=== PATIENT | female | born 1990 | race Caucasian/White ===

== ENCOUNTER 2024-10-12 15:54 | Outpatient (CLI) | payer OTHER, SELFPAY ==
--- OUTSIDE RECORDS SUMMARY | 2024-10-12 16:00 | XMS_ITS | Clinical Summary ---
Author Organization [facility] Address [address] [place] [address] Care Team Providers Care Learning Solutions Specialist Name Role Phone Lani Mahmood MD Primary Care Provider [phone] JohnUli Fernando DO Unavailable Allergies Active Allergy Reactions Criticality Noted Date Comments Sulfa Antibiotics GI Upset 07/01/2024 Medications amphetamine-dext roamphetamine (ADDERALL) 30 MG tablet Take 1 tablet (30 mg total) by mouth 2 (two) times daily. 4 Active vitamin, low iron, 27-0.8 mg tablet Take 1 tablet by mouth daily. Active aspirin 81 MG chewable tablet Chew 1 tablet (81 mg total) by mouth daily. Active MAGNESIUM GLUCONATE OR Active VITAMIN D, CHOLECALCIFEROL, OR Active buPROPion SR 200 MG TABLET SR 12 HR 12 hr tabletIndication s:Mild episode of recurrent major depressive disorder Take 1 tablet by mouth daily. 90 tablet 5 Active ferrous sulfate, 65 mg elemental, 325 (65 FE) MG tabletIndication s:Iron deficiency anemia, unspecified iron deficiency anemia type Take 1 tablet (325 mg total) by mouth daily with breakfast. 90 tablet 5 Active buPROPion SR 200 MG TABLET SR 12 HR 12 hr tabletIndication s:Mild episode of recurrent major depressive disorder Take 1 tablet by mouth daily. 90 tablet 2 5 10/04/19 25 Discontinu ed(Reorder ) ferrous sulfate, 65 mg elemental, 325 (65 FE) MG tabletIndication s:Iron deficiency anemia, unspecified iron deficiency anemia type Take 1 tablet (325 mg total) by mouth daily with breakfast. 90 tablet 1 5 10/04/19 25 Discontinu ed(Reorder ) Active Problems Problem Noted Date Diagnosed Date Attention or concentration deficit 07/01/2024 Mild episode of recurrent major depressive disor ana paula 07/01/2024 Estimated Date of Delivery Comme nts Yes 11/06/2024 Immunizations Immunization Administration Dates Next Due Tdap (Generic) 11/23/2018,03/23/2014 Family History Medical History Relation Comments Asthma Father Cancer Father Heart Disease Maternal Grandfather Asthma Mother Early Hearing Loss Mother Heart Disease Paternal Grandfather Relation Status Comments Father Maternal Grandfather Mother Paternal Grandfather Social History Tobacco Use Types Packs/Day Years Used Date Smoking Tobacco: Never Smokeless Tobacco: Never Tobacco Cessation:Counseling Given: Yes AUDIT-C Answer Date Recorded Q1: How often do you have a drink containing alcohol? Never 07/01/2024 Q2: How many drinks containi ng alcohol do you have on a typical day when you are drinking? Patient does not drink Q3: How often do you have si x or more drinks on one occasion? Never 07/01/2024 PHQ-2 Answer Date Recorded Patient Health Questionnaire-2 Score 0 07/01/2024 Estimated Date of Delivery Comme nts Yes 11/06/2024 Sex and Gender Information Value Date Recorded Sex Assigned at Female 08/30/2024 3:23 PM CDT Legal Sex Female 9:28 AM [employer] [employer] Gender Identity Female 08/30/2024 3:23 PM CDT Sexual Orientation Straight 08/30/2024 3: 23 PM CDT Last Filed Vital Signs Vital Sign Reading Time Taken Comments Blood Pressure 122/83 07/01/2024 3:07 PM CDT Pulse 110 07/01/2024 3:07 PM CDT Temperature 36.6 C (97.8 F) 07/01/2024 3:07 PM CDT Respiratory Rate 18 07/01/2024 3:07 PM CDT Oxygen Saturation 98% 07/01/2024 3:07 PM CDT Inhaled Oxygen Concentration - - Weight 82.6 kg (182 lb) 07/01/2024 3:07 PM CDT Height 162.6 cm (5' 4) 07/01/2024 3:07 PM CDT Body Mass Index 31.24 07/01/2024 3:07 PM CDT Plan of Treatment Upcoming Encounters Date Type Department Care Team (Late st Contact Info) Description 01/27/2025 9:00 AM [employer] Office Visit [facility] Multispecialty [facility] [address] [address] [address] [place] [address] Lani Mahmood MD [address] [facility] [address] [place] [address] Health Maintenance Due Date Last Done Comments Cervical Cancer Screening Pa p Smear (Age 30 to 64) Every 3 Years 1990 Hepatitis B Vaccines (1 of 3 - 19+ 3-dose series) 2009 HPV Vaccines (1 - 3-dose SCD M series) 2017 Cervical Cancer Screening Pa p with HPV Testing (Age 30 to 64) Every 5 Years 2020 Cervical Cancer Screening wi th HPV 2020 COVID-19 Vaccine ( - 2023-2 5 season) 2023 Annual Physical 07/01/2025 07/01/2024 DTaP, Tdap and Td Vaccines ( 3 - Td or Tdap) 11/23/2028 11/23/2018, 03/23/2014 Hepatitis C Completed 07/01/2024 PHQ-2 (Physician [place]) Completed 07/01/2024 Meningococcal B Vaccine Aged Out No l onger eligible based on patient's age to complete this topic Meningococcal Vaccine Aged Out No meryl vinicius eligible based on patient's age to complete this topic Pneumococcal Vaccine: Pediatrics (0 to 5 Years) and At-Risk Patients (6 to 49 Years) Aged Out No longer eligible b ased on patient's age to complete this topic RSV Immunization or 60+ Years (No Doses Required) Completed RSV Immunizations Under 20 Months Aged Out No longer eligible b ased on patient's age to complete this topic Procedures Procedure Name Priority Date/Time Associated Diagnosis Comments HEPATITIS C ANTIBODY Routine 07/01/2024 3:47 PM CDT Annual physical exam Establishing care with new doctor, encounter for General medical exam Drug therapy from Last 3 Months or Most Recently Relevant to Health Maintenance Results * HEPATITIS C ANTIBODY (07/01/2024 3:47 PM CDT) HEPATITIS C AB NON-REACTI VE NON-REACT ADRIAN 07/02/2024 6:41 PM CDT [facility] Comment: ANTIBODIES TO HCV NOT DETECTED. DOES NOT EXCLUDE THE POSSIBILITY OF EXPOSURE TO HCV. 07/01/2024 3:47 PM CDT Lani Mahmood MD LABORATORY Final Result [facility] [address] [place] [address], [id number] from Last 3 Months or Most Recently Relevant to Health Maintenance Insurance [facility] [place] [address] Care Teams Learning Solutions Specialist Relationship Specialty Start Date End Date Lani Mahmood MD [address] [facility] [address] [place] [address] PCP - General INTERNAL MEDICINE 07/01/24 lUi Lopez DO [address] [place] [id number] FAMILY PRACTICE 07/01/24
--- OUTSIDE RECORDS SUMMARY | 2024-10-12 16:00 | XMS_ITS | Patient Health Record ---
Author Organization [facility] [employer] Address [address] [place] [address] Care Team Providers Care Dye Machine Tender Name Role Phone Shruthi Rowley Unavailable [phone] Reason For Referral No Information Medications Medication SIG (Take, Route, Frequency, Duration) Notes Start Date End Date Status Ozempic (0.25 or 0.5 MG/DOSE) 2 MG/3ML Subcutaneous *Pick strength-form from [employer] for eRX* 10/23/2022 Active Vyvanse 70 MG Oral 10/23/2022 Activ e M-M-R II VACCINE 1,000-12,500 TCID50/0.5 mL Subcutaneous *Reorder from [employer] for eRx and Interaction Alerts* 10/23/2022 Active ENGERIX-B ADULT 20 mcg/mL Injection *Reorder from [employer] for eRx and Interaction Alerts* 10/23/2022 Active Amphetamine-Dextroamphet amine 30 MG Oral 10/23/2022 Active Clindamycin HCl 300 MG Oral 10/23/2022 Active Amphetamine-Dextroamphet amine 20 MG Oral 10/23/2022 Active Vyvanse 60 MG Oral 10/23/2022 Activ e Nitrofurantoin Monohyd Macro 100 MG Oral 10/23/2022 Active Venlafaxine HCl 37.5 MG Oral 10/23/2022 Active Propranolol HCl 10 MG Oral 10/23/2022 Active methylPREDNISolone 4 MG Oral 10/23/2022 Active buPROPion HCl ER (SR) 200 MG Oral 10/23/2022 Active Venlafaxine HCl 75 MG Oral 10/23/2022 Active Plan Of Treatment No Information Insurance Providers Payer Name Payer Address Payer Phone Subscriber Number Group Number Insured Name Patient Relationship to Insured Coverage Start Date Coverage End Date [facility] [address] [address] [place] [address] [id number] FRANKIE CAMPOS Self - patient is the insured
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
--- OUTSIDE RECORDS SUMMARY | 2024-10-12 16:00 | XMS_ITS | Clinical Summary ---
Author Organization [facility] [employer] Address [address] [place] [address] Care Team Providers Care Mobile Health Vehicle Operator Name Role Phone Ashley Novak MD Unavailable Chase Engel DO Primary Care Provider [phone] Source Comments [facility],non-owned Affiliates and Associated Physician Practices is amultiple site organization consisting of ambulatory clinics and hospital sitesin [place], [place], [place] and [place]. This disclosure is being madepursuant to the Care Everywhere program and may not contain all information available regarding this patient. Last updated 17.[facility] [employer] Allergies No known active allergies Medications * Be aware that medications may not be up to date on this document. Alwaysverify current medications with the patient. Amoxicillin-Pot Clavulanate (AUGMENTIN PO) Activ e amphetamine-dextr oamphetamine XR 24hr (ADDERALL XR) 30 MG capsule Take 1 Cap by mouth every morning. 30 Cap 0 07/13/2012 Active Active Problems Problem Noted Date Diagnosed Date Acute pharyngitis 02/28/2008 Acute pharyngitis 07/13/2006 Acute tonsillitis 06/29/2006 Otitis media 04/15/2006 Overview (12/21/2014): Suture removal 11/28/2004 Acute pharyngitis 09/30/2004 Resolved Problems Problem Noted Date Diagnosed Date Resolved Date Urinary tract infection 03/29/200701/22 Overview (01/28/2015): Acute sinusitis 06/07/2004 01/18/2015 Overview (12/21/2014): Acute upper respiratory infection 01/04/2015 Overview (12/21/2014): Immunizations Immunization Administration Dates Next Due INFLUENZA VACCINE, TRIV. (AF LURIA, FLUZONE TRIVALENT; 6MO+) (IIV3) 12/30/2010 Covid Hailo primary monoval ent 12+ yr 0.3mL Purple cap 05/04/2020,04/10/2020 DPT 12/01/1991, 1,1990,08/02 DT 07/05/2004 DTaP VACCINE IM (6wk-6yrs) 02/22/1997 HEP A PEDS 2 DOSE 07/17/2005,07/05/2004 HEP B VACCINE, PED/ADOL 06/29/2000,02/22/1997, HIB BOOSTER 12/01/1991, 1,1990,08/02 MENINGOCOCAL MENINGITIS 07/05/2004 MENINGOCOCCAL ACWY (MCV4P) VAC IM 10/28/2010 MMR 02/22/1997,12/01/1991 POLIO IPV 12/01/1991,1990,1990 POLIO OPV 02/22/1997 PPD 07/05/2004 TDAP (7yrs+) 10/28/2010 Social History Tobacco Use Types Packs/Day Years Used Date Smoking Tobacco: Never Assessed Comments Unknown Sex and Gender Information Value Date Recorded Sex Assigned at Female 04/29/2020 8:06 PM [employer] OFFIC[employer] Legal Sex Female 6:56 AM [employer] OFF[employer] Gender Identity Female 04/29/2020 8:06 PM [employer] OFFICER Sexual Orientation Not on file Last Filed Vital Signs Vital Sign Reading Time Taken Comments Blood Pressure 121/74 03/27/2011 9:55 AM [employer] OFF[employer] Pulse 98 03/27/2011 9:55 AM [employer] OFF[employer] Temperature 37.6 C (99.7 F) 03/27/2011 9:34 AM [employer] OFFICER Respiratory Rate - - Oxygen Saturation - - Inhaled Oxygen Concentration - - Weight 57.8 kg (127 lb 6.4 oz) 03/27/2011 9:34 A M [employer] OFFIC[employer] Height 161.9 cm (5' 3.75) 03/27/2011 9:55 AM CS T Body Mass Index 22.04 03/27/2011 9:34 AM [employer] OFFICER Plan of Treatment Health Maintenance Due Date Last Done Comments HIV SCREENING 2005 HEPATITIS C SCREENING 05/24/2008 HPV VACCINE (1 - 3-dose SCDM series) 2017 DTAP/TDAP/TD VACCINES (8 - Td or Tdap) 10/28/2020 10/28/2010, 07/05/2004, 02/22/1997, Additional history exists COVID-19 VACCINE ( season) 2023 05/04/2020, 04/10/2020 DEPRESSION SCREENING 03/23/2024 INFLUENZA VACCINE (#1) 2024 12/30/2010 ZOSTER VACCINE (1 of 2) 2040 HIB VACCINE Completed 12/01/1991, 11/21, 1990, Additional history exists HEPATITIS B VACCINE Completed 06/29/2000, 02/22/1997, 01/15/1993 MENINGOCOCCAL GROUPS A/C/Y/W VACCINE Aged Out 10/28/2010, 07/05/2004 No longer eligibl e based on patient's age to complete this topic MENINGOCOCCAL (Group B) VACCINE SHARED DECISION-MAKING Aged Out No longer eligible based on patient's age to complete this topic PNEUMOCOCCAL VACCINE Aged Out No long er eligible based on patient's age to complete this topic Care Teams Mobile Health Vehicle Operator Relationship Specialty Start Date End Date Ashley Novak MD PCP - Pediatrics Pediatrics 03/26/11 Chase Engel DO PCP - General Family Medicine 06/26/15
--- OUTSIDE RECORDS SUMMARY | 2024-10-12 16:00 | XMS_ITS | Clinical Summary ---
Author Organization [facility] Address [address] [place] [address] Phone Care Team Providers Care Spinning Lathe Operator Hydraulic Name Role Phone Unavailable Primary Care Provider Unavailabl e Allergies Active Allergy Reactions Criticality Noted Date Comments Sulfa (Sulfonamide Antibiotics) Nausea and Vomiting Low 02/22/2024 Medications buPROPion HCL (WELLBUTRIN SR) 200 mg Sustained Release 12 hour tablet Take 1 Tablet by mouth daily. 02/06/2024 Active no.11-fdeh-ZL-d morley (COMMERCIAL INSTRUCTOR SUPERVISOR-PNV-DHA) 28 mg iron- 1 mg-200 mg Capsule Take 1 Capsule by mouth daily. 30 Capsule 11 02/22/2024 Active nitrofurantoin (MACROBID) 100 mg capsuleIndicati ons:Postcoital UTI Take 1 Capsule (100 mg) by mouth one time as needed for Other (See Comment) (postcoital) . 30 Capsule 2 02/22/2024 Active Cetirizine 5 mg/5 mL Solution Take 5 mg by mouth daily. Active Active Problems Estimated Date of Delivery Comme nts Yes 11/09/2024 Based on last me nstrual period of 02/03/2024 No known active problems Encounters Date Type Department Care Team Description 10/05/2024 External Device Data STL ABSTRACTION Provider, Abstract 10/05/2024 External Device Data STL ABSTRACTION Provider, Abstract 09/13/2024 External Device Data [facility] ABSTRACTION Provider, Abstract 09/07/2024 External Device Data [facility] ABSTRACTION Provider, Abstract 08/16/2024 External Device Data [facility] ABSTRACTION Provider, Abstract 08/11/2024 External Device Data [facility] ABSTRACTION Provider, Abstract 08/10/2024 External Device Data [facility] ABSTRACTION Provider, Abstract from Last 3 Months Family History Medical History Relation Name Comments Heart Disease Maternal Grandfather Cameron Singh Stroke Maternal Grandfather Cameron Singh Breast Cancer Neg Hx Colon Cancer Neg Hx Ovarian Cancer Neg Hx Relation Name Status Comments Maternal Grandfather Cameron Singh Social History Tobacco Use Types Packs/Day Years Used Date Smoking Tobacco: Never Tobacco Cessation:Counseling Given: Not Answered Alcohol Use Standard Drinks/Week Comments Not Currently 2 (1 standard drink = 0.6 oz pur e alcohol) Estimated Date of Delivery Comme nts Yes 11/09/2024 Based on last me nstrual period of 02/03/2024 Sex and Gender Information Value Date Recorded Sex Assigned at Not on file Legal Sex Female 7:25 AM CDT Gender Identity Not on file Sexual Orientation Not on file Last Filed Vital Signs Vital Sign Reading Time Taken Comments Blood Pressure 122/67 04/16/2024 12:35 PM CORRECTION OFFICER HEAD Pulse 89 04/16/2024 12:35 PM CORRECTION OFFICER HEAD Temperature 37.3 C (99.1 F) 04/16/2024 10:13 AM CORRECTION OFFICER HEAD Respiratory Rate 18 04/16/2024 12:35 PM CORRECTION OFFICER HEAD Oxygen Saturation 98% 04/16/2024 12:35 PM CORRECTION OFFICER HEAD Inhaled Oxygen Concentration - - Weight 74.4 kg (164 lb) 04/16/2024 10:13 AM CORRECTION OFFICER HEAD Height 162.6 cm (5' 4) 04/16/2024 10:35 AM CORRECTION OFFICER HEAD Body Mass Index 28.15 04/16/2024 10:13 AM CORRECTION OFFICER HEAD Plan of Treatment Upcoming Encounters Date Type Department Care Team (Late st Contact Info) Description 11/09/2024 Hospital Encounter [facility] OB Triage [address] [place] [address] Analia Stewart MD [address] [address] Health Maintenance Due Date Last Done Comments HPV/Cotest (21-29) 05/30/2011 CERVICAL CANCER SCREENING 2020 HPV/Cotest (30-65) 2020 PAP SMEAR 2020 DTAP/TDAP/TD VACCINES (3 - Td or Tdap) 10/28/2020 10/28/2010, 02/22/1997 COVID-19 Vaccine ( season) 2023 05/04/2020, 04/10/2020 INFLUENZA VACCINE (#1) 2024 12/30/2010 HEPATITIS B VACCINES Completed 06/29/2000, 02/22/1997, 01/15/1993 HPV VACCINES Aged Out No longer eligi ble based on patient's age to complete this topic RSV VACCINE (60+ or ) (No Doses Required) Completed Insurance [facility] [id number] Advance Directives For more information, please contact: [phone] * Full Code (Latest Code Status on File) Date Activated Date Inactivated Comments 04/16/2024 10:18 AM 04/16/2024 2:41 PM
[2024-10-12 17:10] LABS: Hepatitis B Surface Antigen Negative (Negative)
== END 2024-10-12 15:55 | disposition home or self-care (01) ==
LOC: ANHLAB 15:56
PROVIDERS: PCP Internal Medicine; Visit Provider Obstetrics & Gynecology
DX: Z34.90 Encounter for supervision of normal pregnancy, unspecified, unspecified trimester (principal)
CPT/HCPCS: 36415; 86762; 86850; 86900; 86901; 87340

== ENCOUNTER 2024-11-05 20:35 | Inpatient (IN) | payer OTHER, SELFPAY ==
--- NOTE | ~2024-11-05 | XR_ITS ---
AP view of the pelvis Clinical history: Missing sponge Findings: No acute fracture or dislocation is seen. Osseous alignment is anatomic. Bilateral hip and SI joint spaces are preserved. Soft tissues are unremarkable. No radiopaque foreign body evident. Impression: No radiopaque foreign body or sponge identified on this image. Reviewed, dictated and finalized at location . Impression: No radiopaque foreign body or sponge identified on this image.
[2024-11-05 20:54] VITALS: BP 113/87; PULSE 108
[2024-11-05] MEDS: LACTATED RINGERS 1,000 ML 125 ML IV CONT (23:00)
--- OUTSIDE RECORDS SUMMARY | 2024-11-05 23:03 | XMS_ITS | Clinical Summary ---
Author Organization [facility] Address [address] [place] [address] Care Team Providers Care Driver/Guide Name Role Phone Lani Mahmood MD Primary Care Provider [phone] JohnUli Fernando DO Unavailable [phone] Allergies Active Allergy Reactions Criticality Noted Date Comments Sulfa Antibiotics GI Upset 07/01/2024 Medications amphetamine-dext roamphetamine (ADDERALL) 30 MG tablet Take 1 tablet (30 mg total) by mouth 2 (two) times daily. 03/07/2024 Active vitamin, low iron, 27-0.8 mg tablet [...] 1 tablet by mouth daily. 90 tablet 10/03/2024 Active ferrous sulfate, 65 mg elemental, 325 (65 FE) MG tabletIndication s:Iron deficiency anemia, unspecified iron deficiency anemia type Take 1 tablet (325 mg total) by mouth daily with breakfast. 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 07/01/2024 Estimated Date of Delivery Comme nts Yes 11/06/2024 Encounters Date Type Department Care Team Description 10/12/2024 Scan [facility]VCS Scanned, [facility] (SCAN) from Last 3 Months Immunizations Immunization Administration Dates Next Due Tdap [...] PM CDT Legal Sex Female 9:28 AM RENAL TECHNICIAN Gender Identity Female 08/30/2024 3:23 PM CDT [...] st Contact Info) Description 01/27/2025 9:00 AM RENAL TECHNICIAN Office Visit [facility] - [address] [place] [address] Lani Mahmood MD [address] [facility] [address] [place] [address] Health Maintenance Due Date Last Done Comments [...] Screening wi th HPV 2020 COVID-19 Vaccine (2023-2 5 season) 2023 Annual Physical 07/01/2025 07/01/2024 DTaP, Tdap and Td Vaccines ( 3 - Td or Tdap) 11/23/2028 11/23/2018, 03/23/2014 Hepatitis C Completed 07/01/2024 PHQ-2 (Physician [place]) Completed 07/01/2024 Meningococcal B Vaccine Aged Out [...] Procedure Name Priority Date/Time Associated Diagnosis Comments OUTSIDE LAB (SCAN ORDER) 10/12/2024 OUTSIDE LAB (SCAN ORDER) 10/12/2024 HEPATITIS C ANTIBODY Routine 07/01/2024 3:47 PM CDT Annual physical exam Establishing care with new doctor, encounter for General medical exam Drug therapy from Last 3 Months or Most Recently Relevant to Health Maintenance Results * OUTSIDE LAB (SCAN ORDER) (10/12/2024) Only the most recent of2 resultswithin the time period is included. 10/12/2024 [facility] Scanned SCANNING Final Resu lt * HEPATITIS C ANTIBODY (07/01/2024 3:47 PM CDT) HEPATITIS C AB NON-REACTI VE NON-REACT ADRIAN 07/02/2024 6:41 PM CDT [facility] Comment: ANTIBODIES TO HCV NOT DETECTED. DOES NOT EXCLUDE THE POSSIBILITY OF EXPOSURE TO HCV. 07/01/2024 3:47 PM CDT Lani Mahmood MD LABORATORY Final Result [facility] [address] [place] [address], [place] [phone] [id number] from Last 3 Months or Most Recently Relevant to Health Maintenance Insurance [id number] Care Teams Driver/Guide Relationship Specialty Start Date End Date Lani Mahmood MD [address] [facility] [address] [place] [address] PCP - General INTERNAL MEDICINE 07/01/24 Uli Lopez DO [address] [place] [address] FAMILY PRACTICE 07/01/24
--- OUTSIDE RECORDS SUMMARY | 2024-11-05 23:03 | XMS_ITS | Continuity of Care Document ---
Author Organization [facility] Address [address] [place] [address] Phone Care Team Providers Care Director Medical Science Name Role Phone Terrance Forrester DO Unavailable Unavailable Allergies, Adverse Reactions, Alerts Substance Reaction Status Criticality No Known Allergies Active No Inform ation Medications Medication Instructions Dosage Effective Dates (start - stop) Status Comments Adderall 30 mg tablet take 1 tablet by oral route 2 times every day before breakfast and at noon 30 MG - Active #60 is for full 30 days. Do not refill earlier than 30 days from previous Rx. Zoloft 50 mg tablet take 1.5 tablet by oral route every day - Active Increasing dose to 75 mg daily 04-01-17 Advance Directives Directive Yes / No Effective Date File Name No Information Encounters Encounter Description Practice Location Reason(s) For Visit Diagnoses Date Provider Providers Copied on Encounter [facility], [address], [place], [place], [address] , [place] tel: [phone] [facility] No Information 9 Mitzy Carlos. [address], [place], [place], [id number] , [place]. tel: [phone] [facility], [address], [place], [place], [address] , tel: [phone] [facility] No Information 8 Mitzy Carlos. [address], [place], [place], [address] , [place]. tel: [phone] [facility], [address], [place], [place], [address] , tel: [phone] [facility] AnxietyADD (attention deficit hyperactivity disorder, inattentive type)Weight gain 8 Mitzy Carlos. [address], [place], [place], [address] , [place]. tel: [phone] Referring Provider: Terrance Forrester, [address], [place], [address] . tel:[phone] [facility], [address], [place], [place], [address] , tel: [phone] [facility] ADD (attention deficit hyperactivity disorder, inattentive type)Anxiety 8 Mitzy Carlos. [address], [place], [place], [address] , . tel: [phone] Referring Provider: Terrance Forrester, [address], [place], [address] . tel:[phone] [facility], [address], [place], [place], [address] , tel: [phone] [facility] ADD (attention deficit hyperactivity disorder, inattentive type)AnxietyTherapeu tic drug monitoringEncounter for general adult medical examination with abnormal findings 7 Mitzy Carlos. [address], [place], [place], [address] , [place]. tel: [phone] Referring Provider: Terrance Forrester, [address], [place], [address] . tel:[phone] [facility], [address], [place], [place], [address] , tel: [phone] [facility] Intercostal muscle strain, initial encounterADD (attention deficit hyperactivity disorder, inattentive type)AnxietyAcute sinusitis, unspecifiedCough 7 Mitzy Carlos. [address], [place], [place], [address] , [place]. tel: [phone] Referring Provider: Terrance Forrester, [address], [place], [address] . tel:[phone] [facility], [address], [place], [place], [address] , tel: [phone] [facility] ADD (attention deficit hyperactivity disorder, inattentive type)Anxiety 7 Mitzy Carlos. [address], [place], [place], [address] , [place]. tel: [phone] Referring Provider: Terrance Forrester, [address], [place], [address] . tel:[phone] [facility], [address], [place], [place], [address] , tel: [phone] [facility] ADD (attention deficit hyperactivity disorder, inattentive type)Anxiety 6 Mitzy Carlos. [address], [place], [place], [address] , [place]. tel: [phone] Referring Provider: Terrance Forrester, [address], [place], [address] . tel:[phone] [facility], [address], [place], [place], [address] , [facility]: [phone] [facility] ADD (attention deficit hyperactivity disorder, inattentive type) 6 Mitzy Carlos. [address], [place], [place], [address] , [place]. tel: [phone] Referring Provider: Terrance Forrester, [address], [place], [address] . tel:[phone] [facility], [address], [place], [place], [address] , tel: [phone] [facility] Therapeutic drug monitoringADD (attention deficit hyperactivity disorder, inattentive type) 6 Mitzy Carlos. [address], [place], [place], [address] , [place]. tel: [phone] Referring Provider: Terrance Forrester, [address], [place], [address] . tel:[phone] [facility], [address], [place], [place], [address] , tel: [phone] [facility] ADD (attention deficit hyperactivity disorder, inattentive type)Anxiety Apr-0 8-201 6 Mitzy Carlos. [address], [place], [place], [address] , [place]. tel: [phone] Referring Provider: Terrance Forrester, [address], [place], [address] . tel:[phone] Family History Family Member Type Diagnosis Age At Onset Paternal grandfather Problem (finding) premature coron sagar heart disease Father Problem (finding) malignant melanoma Immunizations Vaccine Date Status Comments Fluzone Quad [id number], preservative free, split virus, 0.5mL dosage refused Source: New Immuniza tion Record Tdap administered Source: Other P rovider Payers Payer name Insurance type Covered republican ID Authoriza tion(s) [employer] OPEN ACCESS CI [id number] [facility] CI [id number] Social History Type Description Quantity Date Captured Comments Alcohol Use Details Unknown Caffeine Use Details Unknown Tobacco Use Status No Information Smoking Status No Information Sex Female Chief Complaint And Reason For Visit No Information Reason For Referral Reason For Referral No Information History Of Present Illness Encounter Date Complaint History Of Prese nt Illness No Information Functional Status Date Functional Assessmen t No Information Instructions Date Instruction Additional Infor mation No Information Assessments Type Assessment Date No Information Patient Care Teams Name Effective Dates (start - stop) Status Members No Information
--- OUTSIDE RECORDS SUMMARY | 2024-11-05 23:03 | XMS_ITS | Clinical Summary ---
Author Organization [facility] Address [address] [place] [address] Care Team Providers Care Service Station Console Operator Name Role Phone Ashley Novak MD Unavailable Chase Engel DO Primary Care Provider [phone] Source Comments [facility],non-owned Affiliates and Associated Physician Practices is amultiple site organization consisting of ambulatory clinics and hospital sitesin [place] and [place]. This disclosure is being madepursuant to the Care Everywhere program and may not contain all information available regarding this patient. Last updated 17.[facility] Allergies No known active allergies Medications * [...] LURIA, FLUZONE TRIVALENT; 6MO+) (IIV3) 12/30/2010 Covid [employer] primary monoval ent 12+ yr 0.3mL Purple [...] Sex Assigned at Female 04/29/2020 8:06 PM ENGINE ROOM HELPER Legal Sex Female 6:56 AM ENGINE ROOM HELPER Gender Identity Female 04/29/2020 8:06 PM ENGINE ROOM HELPER Sexual Orientation Not on file Last Filed Vital Signs Vital Sign Reading Time Taken Comments Blood Pressure 121/74 03/27/2011 9:55 AM ENGINE ROOM HELPER Pulse 98 03/27/2011 9:55 AM ENGINE ROOM HELPER Temperature 37.6 C (99.7 F) 03/27/2011 9:34 AM ENGINE ROOM HELPER Respiratory Rate - - Oxygen Saturation - - Inhaled Oxygen Concentration - - Weight 57.8 kg (127 lb 6.4 oz) 03/27/2011 9:34 A M ENGINE ROOM HELPER Height 161.9 cm (5' 3.75) 03/27/2011 9:55 AM CS T Body Mass Index 22.04 03/27/2011 9:34 AM ENGINE ROOM HELPER Plan of Treatment Health Maintenance Due Date [...] age to complete this topic Care Teams Service Station Console Operator Relationship Specialty Start Date End Date Ashley Novak MD PCP - Pediatrics Pediatrics 03/26/11 Chase Engel DO PCP - General Family Medicine 06/26/15
--- OUTSIDE RECORDS SUMMARY | 2024-11-05 23:03 | XMS_ITS | Clinical Summary ---
Author Organization [facility] Address [address] [place] [address] Phone Care Team Providers Care Canceling And Cutting Control Clerk Name Role Phone Unavailable Primary Care Provider Unavailabl e Allergies Active Allergy Reactions Criticality Noted Date Comments Sulfa (Sulfonamide Antibiotics) Nausea and Vomiting Low 02/22/2024 Medications buPROPion HCL (WELLBUTRIN SR) 200 mg Sustained Release 12 hour tablet Take 1 Tablet by mouth daily. 02/06/2024 Active no.78-ccot-LY-d morley (TWITCHELL OPERATOR-PNV-DHA) 28 mg iron- 1 mg-200 mg Capsule [...] Encounters Date Type Department Care Team Description 10/25/2024 External Device Data [facility] ABSTRACTION Provider, Abstract [...] Comments Blood Pressure 122/67 04/16/2024 12:35 PM GREEN HOUSE MANAGER Pulse 89 04/16/2024 12:35 PM GREEN HOUSE MANAGER Temperature 37.3 C (99.1 F) 04/16/2024 10:13 AM GREEN HOUSE MANAGER Respiratory Rate 18 04/16/2024 12:35 PM GREEN HOUSE MANAGER Oxygen Saturation 98% 04/16/2024 12:35 PM GREEN HOUSE MANAGER Inhaled Oxygen Concentration - - Weight 74.4 kg (164 lb) 04/16/2024 10:13 AM GREEN HOUSE MANAGER Height 162.6 cm (5' 4) 04/16/2024 10:35 AM GREEN HOUSE MANAGER Body Mass Index 28.15 04/16/2024 10:13 AM GREEN HOUSE MANAGER Plan of Treatment Upcoming Encounters Date Type Department Care Team (Late st Contact Info) Description 11/09/2024 Hospital Encounter [facility] OB Triage [address] [place] [address] Analia Stewart MD [address] [address] Health Maintenance Due Date Last Done Comments HPV VACCINES (1 - 3-dose series) 2005 HPV/Cotest (21-29) 05/30/2011 CERVICAL CANCER SCREENING 2020 HPV/Cotest (30-65) 2020 PAP SMEAR 2020 DTAP/TDAP/TD VACCINES (3 - T d or Tdap) 10/28/2020 10/28/2010, 02/22/1997 COVID-19 Vaccine (3 - 2023-2 5 season) 2023 05/04/2020, 04/10/2020 INFLUENZA VACCINE (#1) 2024 12/30/2010 HEPATITIS B VACCINES Completed 06/29/2000, 02/22/1997, 01/15/1993 RSV VACCINE (60+ or ) (No Doses Required) Completed Insurance [facility] [id number] Advance Directives For more information, please contact: [phone] * Full Code (Latest Code Status on File) Date Activated Date Inactivated Comments 04/16/2024 10:18 AM 04/16/2024 2:41 PM
--- OUTSIDE RECORDS SUMMARY | 2024-11-05 23:03 | XMS_ITS | Patient Health Record ---
Author Organization [facility] Address [address] [place] [address] Care Team Providers Care Web Development Instructor Name Role Phone Shruthi Rowley Unavailable [phone] Reason For Referral No Information Medications Medication SIG (Take, Route, Frequency, Duration) Notes Start Date End Date Status Ozempic (0.25 or 0.5 MG/DOSE) 2 MG/3ML Subcutaneous *Pick strength-form from [employer] for eRX* 10/23/2022 Active Vyvanse 70 MG Oral 10/23/2022 Activ e M-M-R II VACCINE 1,000-12,500 TCID50/0.5 mL Subcutaneous *Reorder from [employer] for eRx and Interaction Alerts* 10/23/2022 Active ENGERIX-B ADULT 20 mcg/mL Injection *Reorder from [employer] for eRx and Interaction Alerts* 10/23/2022 Active [...] Insured Coverage Start Date Coverage End Date [facility] [address] [address] [place] [address] [id number] FRANKIE CAMPOS Self - patient is the insured
[2024-11-05 23:24] LABS: Hematocrit 35.5 % (37.0-47.0); Hemoglobin 12.0 g/dL (12.0-15.0); Immature Granulocyte Percent A 1.7 % (0-0.5); Lymphocytes Absolute Auto 2.12 K/mm3 (0.9-3.2); Mean Corpuscular HGB Conc 33.8 g/dl (32-36); Mean Corpuscular Hemoglobin 31.3 pg (26-34); Mean Corpuscular Volume 92.4 fl (80-100); Nucleated Red Blood Cells Absolute Auto 0.000 K/mm3 (0.0-0.012); Nucleated Red Blood Cells Perc 0.0 % (0.0-0.2); Platelet Count Result 211 k/mm3 (150-375); Red Blood Count 3.84 M/mm3 (4.2-5.4); White Blood Count 11.4 K/mm3 (4.5-10.0)
[2024-11-05] MEDS: ONDANSETRON INJ 4 MG/2 ML VIAL IV PUSH (23:30)
[2024-11-05 23:36] VITALS: BMI 36.7
--- NOTE | 2024-11-05 23:52 | P.PNAN_ITS ---
Anes - Eval Pre Procedure Procedure: labor pain management Date/Time: 11/05/24 23:52 Surgeon: Britt Preop Diagnosis: pain during labor Pre Op Diagnosis: Ctx Patient Data Age: 34 Gender: F Height: 1.63 m Weight: 97 kg Last Vital Signs Pulse 108 H 11/05/24 20:54 BP 113/87 11/05/24 20:54 Allergies Allergy/AdvReac Type Severity Reaction Status Date / Time Sulfa (Sulfonamide AdvReac Severe vomiting Verified 11/05/24 23:36 Antibiotics) Home Medications ?Medication ?Instructions ?Recorded ?Confirmed ?Type bupropion HCl 200 mg tablet,12 hr 200 mg PO DAILY 05/24/24 11/04/24 History sustained-release (Wellbutrin SR) ferrous sulfate 325 mg (65 mg 325 mg PO 07/19/24 11/04/24 History iron) tablet (FeroSul) cholecalciferol (vitamin D3) 10 10 mcg PO DAILY 09/14/24 11/04/24 History mcg (400 unit) capsule docosahexaenoic acid 200 mg mg PO 09/14/24 11/04/24 History capsule ( DHA) docusate sodium 50 mg capsule 50 mg PO DAILY 09/14/24 11/04/24 History (Stool Softener) acyclovir 400 mg tablet 400 mg PO TID 11/04/24 11/04/24 History Laboratory Tests 11/05/24 23:19 WBC 11.4 H K/mm3 (4.5-10.0) RBC 3.84 L M/mm3 (4.2-5.4) Hgb 12.0 g/dL (12.0-15.0) Hct 35.5 L % (37.0-47.0) MCV 92.4 fl (80-100) MCH 31.3 pg (26-34) MCHC 33.8 g/dl (32-36) RDW 13.4 % (11.5-14.5) Plt Count 211 k/mm3 (150-375) MPV 11.5 H fl (7.4-10.4) Immature Gran % (Auto) 1.7 H % (0-0.5) Neut % (Auto) 70.8 % (45.5-73.1) Lymph % (Auto) 18.6 % (18.3-44.2) Traill % (Auto) 7.7 % (2.6-8.5) Eos % (Auto) 0.7 % (0-4.4) Baso % (Auto) 0.5 % (0.2-1.2) Lymph # (Auto) 2.12 K/mm3 (0.9-3.2) Traill # (Auto) 0.9 H K/mm3 (0.1-0.6) Eos # (Auto) 0.1 K/mm3 (0-0.3) Baso # (Auto) 0.1 K/mm3 (0.0-0.1) Abs Immat Gran (auto) 0.19 H K/mm3 (0.00-0.031) Absolute Neuts (auto) 8.1 H K/mm3 (1.3-6.7) Absolute Nucleated RBC 0.000 K/mm3 (0.0-0.012) Nucleated RBC % 0.0 % (0.0-0.2) : gestational age (edc 11/09/24) Patient hx anesthesia problems: none Family hx anesthesia problems: none Results Review: All pre-operative results and documents have been reviewed as part of the pre- operative evaluation. [facility] Past Medical History Medical History Depression GERD (gastroesophageal reflux disease) Tachycardia Anxiety ADHD Family History Family History Sibling Patient's brother is in good health Patient's sister is in good health Father Skin cancer Mother Skin cancer Grandparent Lymphoma Grandparent Congestive heart failure Grandparent Acute myocardial infarction Social History Social History Smoking status: Never smoker Alcohol intake: former Alcohol use details: social Substance use: never Current Housing: Decline to Answer Concerned About Future Housing: Decline to Answer Difficulty Paying Gas/Electric Bills: Decline to Answer Difficulty Paying for Meds: Decline to Answer Currently Unemployed: Decline to Answer Education: Decline to Answer Difficulty w/ Childcare or Family Care: Decline to Answer Living arrangements: with family Occupation/Education: occupation Gender identity (if verbalized by the patient): Female Sexual Orientation (if Verbalized by the Patient): Straight or Heterosexual Spiritual care concerns: No Exam Day of Procedure 11/05/24 23:52
[2024-11-05 23:54] VITALS: PULSE 69; O2SAT 96
[2024-11-05 23:59] VITALS: BP 147/95; PULSE 94; PULSE 98; O2SAT 98
[2024-11-06] VITALS (144 sets, daily range): BP systolic 86–155; BP diastolic 42–98; PULSE 25–130; RESP 14–20; TEMP 36.3–37.2; O2SAT 76–100
[2024-11-06] MEDS: LACTATED RINGERS 1,000 ML 125 ML IV CONT
[2024-11-06 00:04] LABS: Syphilis IgG/IgM Antibody Non-Reactive (Nonreactive)
--- NOTE | 2024-11-06 00:57 | LDADM ---
This patient, Twyla Nuñez, was admitted to Labor/Delivery/Recovery 104 on 11/05/24 at 20:35. Plans for labor, pain management and were discussed with patient. Patient/family oriented to hospital policies and general routines including ID bracelet, bed and alarms, visiting hours, pain management, procedures, bathroom and other care routines, personal items, smoking policy, room service/diet and guest tray routines, infant security routines, and visiting hours. Patient/Family are encouraged to report perceived risks to care and to ask questions if they do not understand what they are told or what they should do. See [facility] for further documentation.
[2024-11-06] MEDS: FAMOTIDINE 20 MG/2 ML VIAL (03:22)
[2024-11-06] MEDS: OXYTOCIN 30 UNITS/NS 500 ML 30 UNITS/500 ML BAG IV CONT (03:40)
--- NOTE | 2024-11-06 06:28 | P.HP_ITS ---
H&P: HPI History of Present Illness Date/Time: 11/06/24 06:28 Chief Complaint: Contractions Narrative: 34 y/o at 39 weeks presented in labor. PNC significant for: H/o HSV, taking Acyclovir, no current symptoms, h/o anxiety/depression, ADHD. GBS neg. Review of Systems Review of Systems: All systems reviewed & are unremarkable except as noted in HPI and below Constitutional: Constitutional: Reports no additional constitutional complaints and Denies headache(s) Eyes: Eyes: Denies spots in vision ENT: Reports system reviewed and no additional complaints, except as documented and Denies headache(s) Cardiovascular: Cardiovascular: Denies chest pain and Denies dyspnea Respiratory: Respiratory: Denies dyspnea Gastrointestinal: Gastrointestinal: Reports no additional gastrointestinal complaints Genitourinary: Genitourinary: Reports amenorrhea Musculoskeletal: Musculoskeletal: Reports no additional musculoskeletal co mplaints Integumentary/Breasts: Skin/Breast: Denies breast mass and Denies rash Neurologic: Denies headache(s) Psychiatric: Psychiatric: Reports no additional psychiatric complaints [facility] Past Medical History Medical History Depression GERD (gastroesophageal reflux disease) Tachycardia Anxiety ADHD Family History Family History Sibling Patient's brother is in good health Patient's sister is in good health Father Skin cancer Mother Skin cancer Grandparent Lymphoma Grandparent Congestive heart failure Grandparent Acute myocardial infarction Social History Social History Smoking status: Never smoker Second hand tobacco smoke exposure: No Alcohol intake: former Alcohol use details: social Substance use: never Lack of Transportation: No Lack of Food: Never True Current Housing: I Have Housing Concerned About Future Housing: No Difficulty Paying Gas/Electric Bills: No Difficulty Paying for Meds: No Currently Unemployed: No Education: Bachelor's Degree Difficulty w/ Childcare or Family Care: No Living arrangements: with family Occupation/Education: occupation Gender identity (if verbalized by the patient): Female Sexual Orientation (if Verbalized by the Patient): Straight or Heterosexual Spiritual care concerns: No Meds Home Medications and Allergies Home Medications ?Medication ?Instructions ?Recorded ?Confirmed ?Type bupropion HCl 200 mg tablet,12 hr 200 mg PO DAILY 05/24/24 11/04/24 History sustained-release (Wellbutrin SR) ferrous sulfate 325 mg (65 mg 325 mg PO 07/19/24 11/04/24 History iron) tablet (FeroSul) cholecalciferol (vitamin D3) 10 10 mcg PO DAILY 09/14/24 11/04/24 History mcg (400 unit) capsule docosahexaenoic acid 200 mg mg PO 09/14/24 11/04/24 History capsule ( DHA) docusate sodium 50 mg capsule 50 mg PO DAILY 09/14/24 11/04/24 History (Stool Softener) acyclovir 400 mg tablet 400 mg PO TID 11/04/24 11/04/24 History Allergies Allergy/AdvReac Type Severity Reaction Status Date / Time Sulfa (Sulfonamide AdvReac Severe vomiting Verified 11/05/24 23:36 Antibiotics) Vital Signs Vital Signs - 24 hr 11/05/24 20:54 11/05/24 23:54 11/05/24 23:59 Temperature Pulse Rate 108 H 94 Blood Pressure 113/87 147/95 H Pulse Oximetry 96 98 11/06/24 00:00 11/06/24 00:01 11/06/24 00:04 Temperature 97.3 F L Pulse Rate 92 83 Blood Pressure 145/86 H 155/98 H Pulse Oximetry 97 11/06/24 00:06 11/06/24 00:08 11/06/24 00:09 Temperature Pulse Rate 84 72 Blood Pressure 151/83 H 134/78 Pulse Oximetry 97 11/06/24 00:11 11/06/24 00:13 11/06/24 00:16 Temperature Pulse Rate 84 88 78 Blood Pressure 126/59 L 129/75 124/71 Pulse Oximetry 100 11/06/24 00:18 11/06/24 00:19 11/06/24 00:21 Temperature Pulse Rate 76 77 Blood Pressure 128/65 120/69 Pulse Oximetry 98 11/06/24 00:23 11/06/24 00:26 11/06/24 00:28 Temperature Pulse Rate 86 77 Blood Pressure 125/75 110/74 Pulse Oximetry 99 97 11/06/24 00:29 11/06/24 00:31 11/06/24 00:33 Temperature Pulse Rate 80 89 Blood Pressure 86/70 L 122/71 Pulse Oximetry 99 11/06/24 00:38 11/06/24 00:43 11/06/24 00:46 Temperature Pulse Rate 77 Blood Pressure 125/72 Pulse Oximetry 98 98 11/06/24 00:48 11/06/24 00:53 11/06/24 00:58 Temperature Pulse Rate Blood Pressure Pulse Oximetry 98 98 98 11/06/24 01:01 11/06/24 01:03 11/06/24 01:08 Temperature Pulse Rate 100 Blood Pressure 133/79 Pulse Oximetry 98 98 11/06/24 01:13 11/06/24 01:16 11/06/24 01:18 Temperature Pulse Rate 85 Blood Pressure 132/72 Pulse Oximetry 97 98 11/06/24 01:23 11/06/24 01:28 11/06/24 01:31 Temperature Pulse Rate Blood Pressure Pulse Oximetry 97 97 95 11/06/24 01:31 11/06/24 01:34 11/06/24 01:36 Temperature Pulse Rate 100 Blood Pressure 98/53 L Pulse Oximetry 94 93 11/06/24 01:41 11/06/24 01:46 11/06/24 01:51 Temperature Pulse Rate 80 Blood Pressure 112/56 L Pulse Oximetry 94 93 94 11/06/24 01:56 11/06/24 02:01 11/06/24 02:06 Temperature Pulse Rate 78 Blood Pressure 109/51 L Pulse Oximetry 94 92 93 11/06/24 02:11 11/06/24 02:13 11/06/24 02:16 Temperature Pulse Rate 88 Blood Pressure 105/52 L Pulse Oximetry 93 97 11/06/24 02:18 11/06/24 02:23 11/06/24 02:28 Temperature Pulse Rate Blood Pressure Pulse Oximetry 99 97 99 11/06/24 02:31 11/06/24 02:33 11/06/24 02:38 Temperature Pulse Rate 90 Blood Pressure 86/60 L Pulse Oximetry 98 98 11/06/24 02:43 11/06/24 02:46 11/06/24 02:48 Temperature Pulse Rate 70 Blood Pressure 94/52 L Pulse Oximetry 97 97 11/06/24 02:53 11/06/24 02:58 11/06/24 03:01 Temperature Pulse Rate 82 Blood Pressure 109/56 L Pulse Oximetry 97 96 11/06/24 03:03 11/06/24 03:08 11/06/24 03:13 Temperature Pulse Rate Blood Pressure Pulse Oximetry 98 98 98 11/06/24 03:18 11/06/24 03:23 11/06/24 03:27 Temperature Pulse Rate Blood Pressure Pulse Oximetry 99 99 99 11/06/24 03:32 11/06/24 03:37 11/06/24 03:42 Temperature Pulse Rate Blood Pressure Pulse Oximetry 100 98 99 11/06/24 03:47 11/06/24 03:52 11/06/24 03:53 Temperature Pulse Rate 85 Blood Pressure 122/67 Pulse Oximetry 98 98 11/06/24 03:57 11/06/24 04:00 11/06/24 04:02 Temperature 98.2 F Pulse Rate Blood Pressure Pulse Oximetry 95 97 11/06/24 04:07 11/06/24 04:12 11/06/24 04:17 Temperature Pulse Rate Blood Pressure Pulse Oximetry 98 97 98 11/06/24 04:22 11/06/24 04:27 11/06/24 04:32 Temperature Pulse Rate Blood Pressure Pulse Oximetry 100 98 100 11/06/24 04:37 11/06/24 04:42 11/06/24 04:47 Temperature Pulse Rate Blood Pressure Pulse Oximetry 99 98 97 11/06/24 04:52 11/06/24 04:56 11/06/24 05:01 Temperature Pulse Rate Blood Pressure Pulse Oximetry 98 96 97 11/06/24 05:06 11/06/24 05:11 11/06/24 05:16 Temperature Pulse Rate Blood Pressure Pulse Oximetry 97 100 99 11/06/24 05:18 11/06/24 05:21 11/06/24 05:26 Temperature Pulse Rate 68 Blood Pressure 123/94 H Pulse Oximetry 100 97 11/06/24 05:31 11/06/24 05:36 11/06/24 05:41 Temperature Pulse Rate Blood Pressure Pulse Oximetry 97 97 96 11/06/24 05:46 11/06/24 05:51 11/06/24 05:56 Temperature Pulse Rate Blood Pressure Pulse Oximetry 97 97 98 11/06/24 06:01 11/06/24 06:06 11/06/24 06:11 Temperature Pulse Rate Blood Pressure Pulse Oximetry 97 97 96 11/06/24 06:16 11/06/24 06:21 11/06/24 06:25 Temperature Pulse Rate Blood Pressure Pulse Oximetry 100 100 99 Exam Const: General: no acute distress Eyes: General: appearance normal, both eyes and all related structures Resp: Effort & Inspection: normal respiratory effort Cardio: Rate: regular rate GI: Other: Gravid no fundal tenderness no right upper quadrant pain Skin: General skin exam: no rashes or lesions noted Neuro: Cognition (Neuro): normal cognition Extrem: General: normal to inspection Psych: Mental Status: mental status grossly normal H&P: Results Labs Labs: Short CBC 11/05/24 Range/Units 23:19 WBC 11.4 H (4.5-10.0) K/mm3 Hgb 12.0 (12.0-15.0) g/dL Hct 35.5 L (37.0-47.0) % Plt Count 211 (150-375) k/mm3 Assessment and Plan Assessment and plan (1) Labor without complication: Code(s): O80 - Encounter for full-term uncomplicated delivery Status: Acute Assessment and Plan: 1. Admit 2. Expectant management, Pitocin augmentation if needed.
--- NOTE | 2024-11-06 06:32 | PM.OBPNLAB ---
Pain Control Date/time seen: 11/06/24 06:32 Comments: Cat 2, BOW at perineum, AROM clear, rim/c/+1
[2024-11-06] MEDS: ONDANSETRON INJ 4 MG/2 ML VIAL IV PUSH (07:40)
--- NOTE | 2024-11-06 08:13 | S_PTH ---
PATIENT: Twyla Nuñez LOC: [facility] U#:[id number] AGE/SX: 34/F ROOM: 292 RE11/05/[address]: Hevre De La Torre MD : 1990 BED: 00 DIS: 11/08/2024 SPEC #: [id number] RECD: 11/07/24 08:41 STATUS: NATHALIA REQ #: [id number] LUCIE: 11/06/24 08:[address]: Porfirio Rendon DEPT: [facility] Surgical RECD BY: Corinna Alfonso ENTERED: 11/07/24 08:42 SP TYPE: Surgical OTHR DR: MD Yobany Wyatt DO Tissues: A - Placenta Procedures: Hematoxylin and Eosin Stain Gross and Microscopic Level 5
[2024-11-06] MEDS: METHYLERGONOVINE MALEATE 0.2 MG/ML VIAL IM (08:23)
--- NOTE | 2024-11-06 08:38 | P.PCNOB_ITS ---
OB - Vaginal Delivery Note Procedure Delivery date: 11/06/24 Induction method: None Delivery augmentation: Pitocin Delivery monitor: External FHT Route of delivery: Episiotomy description: None Laceration Description: Vaginal Delivery repair: vicryl (2.0 vicryl) Specimen: Yes Quantitative Blood Loss (ml): 400 Anesthesia type: Epidural Disposition: Floor Complications: No immediate complications Narrative: She presented in active labor. She had epidural placed on request. She had Pitocin augmentation. She dilated to a rim. She had AROM, clear fluid. She progressed to complete. She delivered female over intact perineum, loose nuchal cord, nose and mouth suctioned with bulb and at that time thick meconium noted. The rest of the infant was delivered and cord doubly clamped and cut and infant taken to warmer. Baby taken to nursery. Peds available. Cord blood and cord gases obtained. Pitocin started. Placenta delivered spontaneously and intact. She had uterine massage and had intermittent uterine hypotonia. Lower uterine segment cleared of clot several times. She was given 1000mcg of cytotec and then Methergine. She sustained a vaginal laceration repaired with 2.0 vicryl. Sponge count was not correct, one sponge missing, xray ordered. No foreign objects/laps seen on initial read. [place] Baby Date of : 11/06/24 Time of : 08:08 Gestational Age by Date: 39 Infant gender: Female Weight (pounds): 8 Weight (ounces): 10 presentation: vertex position: Right Occiput Anterior Placenta delivery description: Spontaneous Cord Vessel Description: 3 Vessels, Nuchal Cord (x1), Loose and Clamped/Cut
[2024-11-06] MEDS: OXYTOCIN 30 UNITS/NS 500 ML 30 UNITS/500 ML BAG 125 UNITS IV CONT (08:44)
[2024-11-06] MEDS: WITCH HAZEL 40 PADS 1 PAD TOPICAL (10:13)
[2024-11-06] MEDS: BENZOCAINE 20% AER SPR (*SP) 56 GM CAN 1 SPRAY TOPICAL (10:13)
--- NOTE | 2024-11-06 11:11 | OBPPTRN ---
Patient transferred to post room # 292 via wheelchair. Support person present. Oriented to unit, room, information board, rooming in, admission packet and security measures. Patient verbalizes understanding.
--- NOTE | 2024-11-06 12:26 | PC.NURSE ---
Parents ambulated to level II nsy to visit baby.
[2024-11-06] MEDS: IBUPROFEN 600 MG TABLET PO ×2 (14:02→23:24)
[2024-11-06] MEDS: ACETAMINOPHEN 325 MG TABLET 650 MG PO ×2 (18:33→23:23)
[2024-11-07 04:33] LABS: Hematocrit 32.9 % (37.0-47.0); Hemoglobin 10.6 g/dL (12.0-15.0)
[2024-11-07 07:10] VITALS: BP 113/64; PULSE 85; RESP 16; TEMP 36.5; O2SAT 97
--- NOTE | 2024-11-07 08:00 | WPDANLDPN2 ---
Anes-Prog Note L&D Date/Time: 11/07/24 08:00 Comfortable throughout: labor and delivery Neuraxial method: epidural Epidural/Spinal procedure site: clean & non-tender Neuro status: Neuro function grossly intact. Cardiovascular status: normal Respiratory status: normal Airway patency: baseline Mental status: baseline Post-Op hydration status: normal Vital Signs: Last Vital Signs Temp 36.6 C 11/06/24 23:28 Pulse 71 11/06/24 23:28 Resp 14 11/06/24 23:28 BP 110/60 11/06/24 23:28 Pulse Ox 100 11/06/24 23:28 O2 Del Method Room Air 11/06/24 16:10 Pain score (VAS): 1 I/O: Intake & Output 11/06/24 11/07/24 11/07/24 23:59 07:59 15:59 Intake Total 200 Balance 200 Post-procedural complaints: none Patient feedback: Patient satisfied with anesthetic care.
[2024-11-07] MEDS: IBUPROFEN 600 MG TABLET PO ×2 (09:00→19:55)
[2024-11-07] MEDS: ACETAMINOPHEN 325 MG TABLET 650 MG PO ×2 (09:00→19:54)
[2024-11-07] MEDS: DOCUSATE SODIUM 100 MG CAPSULE PO (09:17)
[2024-11-07] MEDS: DIBUCAINE 1% OINTMENT 30 GM TUBE 1 APPLIC TOPICAL (09:17)
--- NOTE | 2024-11-07 11:25 | P.PNOB_ITS ---
OB - PN: Subj Subjective Date/time seen: 11/07/24 11:25 Narrative: PPD#1 Dmitriy reports doing well today. Her bleeding is cycle manager. Her pain is controlled. She is tolerating regular diet, voiding, passing gas, and ambulating without issues. She is bottle feeding. OB - PN: Obj Data Labs 11/07/24 04:24 Labs: Laboratory Results - last 24 hr 11/07/24 04:24 Hgb 10.6 L Hct 32.9 L OB - PN A/P Assessment and Plan (1) Normal vaginal delivery of first : Code(s): O80 - Encounter for full-term uncomplicated delivery Status: Acute Plan day: 1 Plan: routine care Comments: - PO pain meds - Regular diet - Ambulation and hydration encouraged - Recommended tight sports bras, ice, avoid stimulating her breasts Time Spent With Patient Time: Total time spent is greater than 50% in coordination of care (as documented) at patient's floor/unit and/or counseling patient: Review of Systems 2 Constitutional: Constitutional: Denies chills, Denies fever(s) and Denies headache(s) Eyes: Eyes: Denies change in vision ENT: Denies dizziness and Denies headache(s) Cardiovascular: Cardiovascular: Denies chest pain, Denies palpitations and Denies dyspnea Respiratory: Respiratory: Denies cough and Denies dyspnea Gastrointestinal: Gastrointestinal: Denies nausea and Denies vomiting Neurologic: Denies dizziness and Denies headache(s) Endocrine: Endocrine: Denies palpitations Exam 2 Const: General: cooperative, comfortable, no acute distress and obese O rientation/consciousness: patient oriented x3 Resp: Effort & Inspection: normal respiratory effort Auscultation: clear to auscultation bilaterally Cardio: Rate: regular rate GI: Inspection: non-distended GI Palp: No abdominal tenderness and Yes Soft to palpation Auscultation: normal bowel sounds : Other: fundus firm Skin: General skin exam: normal color Neuro: General: patient oriented x3 Extrem: General: normal to inspection Psych: Appearance: grossly normal Affect: normal affect Attitude: c ooperative
[2024-11-07 20:25] VITALS: BP 112/80; PULSE 94
[2024-11-07 21:25] VITALS: PULSE 104; RESP 18; TEMP 36.6; O2SAT 98
[2024-11-08] MEDS: IBUPROFEN 600 MG TABLET PO (06:33)
[2024-11-08] MEDS: ACETAMINOPHEN 325 MG TABLET 650 MG PO (06:33)
[2024-11-08 08:35] VITALS: BP 134/77; PULSE 104; RESP 16; TEMP 37.2; O2SAT 98
--- NOTE | 2024-11-08 12:01 | P.DS_ITS ---
DS: Admitting Diagnosis Discharge Date 11/08/2024 Admitting Diagnosis DS: Discharge Diagnosis Discharge Diagnosis (1) , delivered: Code(s): O80 - Encounter for full-term uncomplicated delivery Status: Acute OB - DS: Summary OB Procedures : None OB Procedures Intrapartum: Spontaneous Vag Delivery OB Procedures: : None Peripartum Data Laceration Description: Vaginal Episiotomy description: None Time Spent with Patient Time attestation: Total time spent providing and/or coordinating discharge services: DS: Data Data Completed and Pending Completed studies during hospitalization: Pending at discharge 11/06/24 08:13 Surgical [PTH] Routine Discharge Plan Discharge Attending physician on discharge: Herve De La Torre Discharging Clinician: Herve De La Torre Patient Disposition: Home Activity: as tolerated Diet: as tolerated Patient Instructions: Antibiotic Form Patient Language: Sinhala Stand Alone Forms: General Discharge Information Follow-up/Referrals: Herve De La Torre MD [Physician, CLINICAL FELLOW] - 4 Weeks Discharge Medications: New ibuprofen 600 mg Tablet 600 mg PO Q6H PRN (Reason: Cramping) Qty: 30 0RF Continued bupropion HCl [Wellbutrin SR] 200 mg tablet sustained-release 12 hr 200 mg PO DAILY ferrous sulfate [FeroSul] 325 mg (65 mg iron) tablet 325 mg PO DHA 200 mg capsule PO cholecalciferol (vitamin D3) 10 mcg (400 unit) capsule 10 mcg PO DAILY Stool Softener 50 mg capsule 50 mg PO DAILY Discontinued acyclovir 400 mg tablet 400 mg PO TID Date of admission: 11/05/24 20:35 Primary Care Provider: Yobany Martin Admitting Provider: Herve De La Torre Attending physician on admission: Herve De La Torre Condition: Stable
[2024-11-09 10:35] VITALS: BP 112/74; PULSE 100; RESP 18; TEMP 37.1; O2SAT 100
[2024-11-09] MEDS: TETANUS,DIPHTHERIA,AC PERTUSSIS ADULT (0.5 ML) BOOSTRIX IM (10:44)
[2024-11-09] MEDS: MEASLES,MUMPS,RUBELLA VACCINE 0.5 ML VIAL SUB-Q (10:45)
== END 2024-11-08 16:18 | disposition home or self-care (01) | DRG 806 ==
LOC: ANHLDR 23:01 → ANHOB2 11-06 11:17
PROVIDERS: Obstetrics & Gynecology; Admitting Provider Obstetrics & Gynecology; PCP Internal Medicine; Visit Provider Obstetrics & Gynecology
DX: O69.81X0 Labor and delivery complicated by cord around neck, without compression, not applicable or unspecified (principal); O71.4 Obstetric high vaginal laceration alone; Z37.0 Single live birth; O98.52 Other viral diseases complicating childbirth; Z3A.39 39 weeks gestation of pregnancy; O77.0 Labor and delivery complicated by meconium in amniotic fluid; B09 Unspecified viral infection characterized by skin and mucous membrane lesions; Z79.899 Other long term (current) drug therapy
CPT/HCPCS: 36415; 72170; 85014; 85018; 85025; 86593; 86850; 86900; 86901; 88307; 90710; 90715; A9270; J2210; J2405; J2590; J2795; J7120